=== PATIENT | male | born 1975 | race Two or more races ===

== ENCOUNTER 2018-02-07 21:23 | Emergency (ER) | payer OTHER ==
[~2018-02-07] VITALS: Ht 180.3 cm; Wt 111.1 kg
== END 2018-02-07 22:51 | disposition home or self-care (01) ==
LOC: ER 21:23
DX: B02.9 Zoster without complications (principal)

== ENCOUNTER 2018-03-28 08:40 | Outpatient (CLI) | payer OTHER ==
[2018-04-11] MEDS ORDERED: NABUMETONE750 MG PO (10:48)
== END 2018-03-28 08:56 | disposition home or self-care (01) ==
LOC: SONOGRAMA 08:40
DX: M25.511 Pain in right shoulder (principal)

== ENCOUNTER 2024-09-27 07:07 | Outpatient (CLI) | payer OTHER ==
[~2024-09-27 07:07] MED LIST: NABUMETONE750 MG PO
== END 2024-09-27 07:08 | disposition home or self-care (01) ==
LOC: NUCLEAR 07:07
PROVIDERS: ATTEND Internal Medicine
DX: I20.9 Angina pectoris, unspecified (principal)